=== PATIENT | male | born 1975 | race Caucasian/White ===

== ENCOUNTER 2024-09-10 06:38 | Day surgery (SDC) | payer OTHER, SELFPAY ==
[2024-09-10] VITALS (10 sets, daily range): BP systolic 114–212; BP diastolic 91–137; PULSE 88–118; RESP 12–22; TEMP 36.2–37.1; O2SAT 93–100
--- NOTE | ~2024-09-10 | US_ITS ---
EXAMINATION: US right upper quadrant DATE: 09/10/2024 08:22 INDICATION: Abdominal pain TECHNIQUE: Multiple grayscale and Doppler ultrasound images of the abdomen were obtained. COMPARISON: None FINDINGS: Visualized proximal inferior vena cava is normal. The region of the pancreas is obscured by shadowing bowel gas. Liver has normal contour, with a smooth surface. There is increased parenchymal echogenic ity and coarsened echotexture consistent with diffuse hepatic steatosis. No liver lesion identified. No intrahepatic biliary duct dilation suspected. Portal venous flow was seen in the hepatopetal, nor mal direction and has normal Doppler waveform. The gallbladder is normal in appearance. There is no cholelithiasis. The common bile duct measures 4 mm, which is normal. Sonographic Giordano sign was repo rted as negative by the special education case manager. Visualized portion of the right kidney demonstrates normal echog enicity and contour with no hydronephrosis. IMPRESSION: 1. Diffuse hepatic steatosis. Reviewed, dictated and finalized at location A. ERN TECHNICIAN
--- NOTE | ~2024-09-10 | CT_ITS ---
EXAMINATION: CT abdomen pelvis w con DATE: 09/10/2024 08:55 INDICATION: Epigastric pain and right upper quadrant abdominal pain. TECHNIQUE: Computed tomography (CT) of the abdomen and pelvis was performed with 100 mL Omnipaque-350 intravenous contrast. Automated exposure control and iterative reconstruction technique were employe d. The dose-length product was 1347.12 mGy-cm. COMPARISON: None FINDINGS: Lung bases are clear. Heart size is normal. No pericardial or pleural effusion. 304 mm gallstone in t he region of the cystic duct. The gallbladder is not abnormally dilated measuring 3.3 cm however ther e is mild edematous with gallbladder wall thickening versus and/or minimal amount of pericholecystic fluid consistent with acute cholecystitis. Liver, spleen, pancreas, bilateral adrenal glands and kidn eys are normal. There are few diverticula along the sigmoid colon without adjacent inflammatory laurent e to suggest diverticulitis. Small bowel and appendix are normal. Bladder is normal. Small bilateral fat-containing inguinal hernias. No free intraperitoneal gas or fluid. No pathologically enlarged abd ominal or pelvic lymphadenopathy. Moderate lumbar and lower thoracic spondylosis. IMPRESSION: 1. Acute cholecystitis with 3-4 mm cystic duct gallstone. Reviewed, dictated and finalized at location A. L RIGHTS INVESTIGATOR
--- NOTE | 2024-09-10 06:52 | ECG_ITS ---
Test Date: 2024-09-10 06:54:46 Measurements Intervals [place] Rate: 112 P: 54 [place]: 164 QRS: -32 QRSD: 95 T: 62 QT: 336 QTc: 460 Interpretive Statements SINUS TACHYCARDIA LEFT ATRIAL ENLARGEMENT [-0.15mV P WAVE IN V1/V2] INDETERMINATE AXIS PATTERN CONSISTENT WITH PULMONARY DISEASE No previous ECG available for comparison Electronically Signed On 09-10-2024 12:53:18 CENTRAL OFFICE WORKER by Gerard Mcneal M.D.
--- NOTE | 2024-09-10 07:00 | PC.NURSE ---
This patient presents to ED for epigastric pain. Patient is hypertensive at 212/137, per patient, my blood pressure goes up when I get my vitals taken. Patient is ambulatory and a/o x's 4.
[2024-09-10 07:12] LABS: Basophils Absolute Auto 0.1 K/mm3 (0.0-0.1); Basophils Percent Auto 0.3 % (0.2-1.2); Eosinophils Percent Auto 0.2 % (0-4.4); Hematocrit 53.2 % (42.0-52.0); Hemoglobin 18.2 g/dL (14.0-18.0); Immature Granulocyte Absolute 0.07 K/mm3 (0.00-0.031); Immature Granulocyte Percent A 0.5 % (0-0.5); Lymphocytes Absolute Auto 1.71 K/mm3 (0.9-3.2); Lymphocytes Percent Auto 11.7 % (18.3-44.2); Mean Corpuscular HGB Conc 34.2 g/dl (32-36); Mean Corpuscular Hemoglobin 30.2 pg (26-34); Mean Corpuscular Volume 88.2 fl (80-100); Mean Platelet Volume 10.3 fl (7.4-10.4); Monocytes Percent Auto 6.7 % (2.6-8.5); Neutrophils Absolute Auto 11.8 K/mm3 (1.3-6.7); Neutrophils Percent Auto 80.6 % (45.5-73.1); Platelet Count Result 280 k/mm3 (150-375); Red Blood Count 6.03 M/mm3 (4.6-6.20); Red Cell Distribution Width 13.3 % (11.5-14.5); White Blood Count 14.6 K/mm3 (4.5-10.0)
[2024-09-10 07:22] LABS: Alanine Aminotransferase 54 U/L (6-50); Albumin Level 4.9 g/dL (3.5-5.1); Alkaline Phosphatase 94 U/L (38-126); Anion Gap 9 mmol/L (4-12); Aspartate Amino Transferase 46 U/L (17-59); Bilirubin,Total 0.8 mg/dL (0.2-1.3); Blood Urea Nitrogen 17 mg/dL (9-20); Calcium 9.4 mg/dL (8.4-10.2); Carbon Dioxide 26 mmol/L (22-30); Chloride 103 mmol/L (98-107); Estimated CRCL calculation 108 ml/min; Estimated Glomerular Filt Rate > 60; Glucose 145 mg/dL (65-110); Lipase 86 U/L (23-300); Potassium 3.8 mmol/L (3.4-5.0); Sodium 138 mmol/L (137-145)
[2024-09-10] MEDS: MORPHINE SULFATE (*CRX) 4 MG/ML INJ IV PUSH (07:40)
[2024-09-10 08:38] LABS: Add Urine Microscopic? YES; Appearance Urine Clear (Clear); Bacteria Urine None Seen /hpf; Bilirubin Urine Negative (Negative); Blood Urine Negative (Negative); Color Urine Yellow (Yellow); Glucose Urine UA Negative (Negative); Ketones Urine Negative (Negative); Leukocyte Esterase Ur Negative LEU/UL (Negative); Nitrate Urine Negative (Negative); Non Pathogenic Casts 0-2; Protein Urine 2+ mg/dL (Negative); RBC Urine 0-2 /hpf (0-2); Squamous Epithelial Cell Urine None Seen /hpf (Few); Urobilinogen Urine 0.2 mg/dL (<2.0); WBC Urine 0-5 /hpf (0-3)
--- NOTE | 2024-09-10 08:43 | ED.GENADULT ---
HPI - General Adult General Chief complaint: Abdominal Pain Stated complaint: abdominal pain Time Seen by Provider: 09/10/24 07:02 History of Present Illness HPI narrative: Patient is a 49-year-old male who presents ER with epigastric and right upper quadrant abdominal pain. Intermittent over last couple of weeks. He has been feeling bloated. Pain is worse with eating and drinking. Worsened today while he is asleep and the pain persisted which was atypical for him. No fevers or chills. Regular vomiting. Related Data Allergies Allergy/AdvReac Type Severity Reaction Status Date / Time Sulfa (Sulfonamide Allergy Rash Verified 09/10/24 13:07 Antibiotics) Review of Systems Review of Systems: All systems reviewed & are unremarkable except as noted in HPI and below Constitutional: Constitutional: Reports no additional constitutional complaints ENT: Reports system reviewed and no additional complaints, except as documented Cardiovascular: Cardiovascular: Reports no additional cardiovascular complaints Respiratory: Respiratory: Reports no additional respiratory complaints PMFSH Past Medical History Medical History (Updated 09/10/24 @ 20:06 by Javier Yepez MD) HTN (hypertension) Obesity (BMI 30-39.9) Exam Narrative: GENERAL: Well-appearing, well-nourished, and in no acute distress. HEAD: Normocephalic, atraumatic. ENT: Mucous membranes moist. CHEST: Clear to auscultation. No respiratory distress. HEART: Regular rate and rhythm. Normal peripheral pulses. ABDOMEN: Soft, tender palpation right upper quadrant with guarding, nondistended, normal active bowel sounds. EXTREMITIES: Normal range of motion. No edema. SKIN: Warm, dry, no rash. NEURO: Alert and oriented x3. PSYCH: Normal mood and affect. Course Course Emergency Course: Discussed with General surgery. Patient will go to the OR for cholecystectomy. IV antibiotics ordered. Vital Signs Vital signs: Vital Signs Temperature 98.8 F 09/10/24 06:43 Pulse Rate 118 H 09/10/24 06:43 Respiratory Rate 16 09/10/24 06:43 Blood Pressure 212/137 H 09/10/24 06:43 Pulse Oximetry 100 09/10/24 06:43 Oxygen Delivery Room Air 09/10/24 06:43 Temperature 97.2 F L 09/10/24 14:15 Pulse Rate 111 H 09/10/24 15:36 Respiratory Rate 14 09/10/24 15:36 Blood Pressure 138/99 H 09/10/24 15:36 Pulse Oximetry 94 09/10/24 14:45 Oxygen Delivery Room Air 09/10/24 14:45 Oxygen Flow Rate 8 09/10/24 14:15 Medical Decision Making Vital Signs Vital Signs: Vital Signs Temperature 98.8 F 09/10/24 06:43 Pulse Rate 118 H 09/10/24 06:43 Respiratory Rate 16 09/10/24 06:43 Blood Pressure 212/137 H 09/10/24 06:43 Pulse Oximetry 100 09/10/24 06:43 Oxygen Delivery Room Air 09/10/24 06:43 Temperature 97.2 F L 09/10/24 14:15 Pulse Rate 111 H 09/10/24 15:36 Respiratory Rate 14 09/10/24 15:36 Blood Pressure 138/99 H 09/10/24 15:36 Pulse Oximetry 94 09/10/24 14:45 Oxygen Delivery Room Air 09/10/24 14:45 Oxygen Flow Rate 8 09/10/24 14:15 Lab Data 09/10/24 06:58 09/10/24 06:58 Labs: Lab Results 09/10/24 09/10/24 Range/Units 06:58 08:27 WBC 14.6 H (4.5-10.0) K/mm3 RBC 6.03 (4.6-6.20) M/mm3 Hgb 18.2 H (14.0-18.0) g/dL Hct 53.2 H (42.0-52.0) % MCV 88.2 (80-100) fl MCH 30.2 (26-34) pg MCHC 34.2 (32-36) g/dl RDW 13.3 (11.5-14.5) % Plt Count 280 (150-375) k/mm3 MPV 10.3 (7.4-10.4) fl Immature Gran % (Auto) 0.5 (0-0.5) % Neut % (Auto) 80.6 H (45.5-73.1) % Lymph % (Auto) 11.7 L (18.3-44.2) % [place] % (Auto) 6.7 (2.6-8.5) % Eos % (Auto) 0.2 (0-4.4) % Baso % (Auto) 0.3 (0.2-1.2) % Lymph # (Auto) 1.71 (0.9-3.2) K/mm3 [place] # (Auto) 1.0 H (0.1-0.6) K/mm3 Eos # (Auto) 0.0 (0-0.3) K/mm3 Baso # (Auto) 0.1 (0.0-0.1) K/mm3 Abs Immat Gran (auto) 0.07 H (0.00-0.031) K/mm3 Absolute Neuts (auto) 11.8 H (1.3-6.7) K/mm3 Absolute Nucleated RBC 0.000 (0.0-0.012) K/mm3 Nucleated RBC % 0.0 (0.0-0.2) % Sodium 138 (137-145) mmol/L Potassium 3.8 (3.4-5.0) mmol/L Chloride 103 (98-107) mmol/L Carbon Dioxide 26 (22-30) mmol/L Anion Gap 9 (4-12) mmol/L BUN 17 (9-20) mg/dL Creatinine 1.00 (0.7-1.3) mg/dL Estim Creat Clear Calc 108 ml/min Estimated GFR > 60 (59 - ) Glucose 145 H (65-110) mg/dL Calcium 9.4 (8.4-10.2) mg/dL Total Bilirubin 0.8 (0.2-1.3) mg/dL AST 46 (17-59) U/L ALT 54 H (6-50) U/L Alkaline Phosphatase 94 (38-126) U/L Total Protein 8.0 (6.3-8.2) g/dL Albumin 4.9 (3.5-5.1) g/dL Lipase 86 (23-300) U/L Urine Color Yellow (Yellow) Urine Appearance Clear (Clear) Urine pH 8.0 (5.0-9.0) Ur Specific [place] 1.020 (1.001-1.035) Urine Protein 2+ H (Negative) mg/dL Urine Glucose (UA) Negative (Negative) mg/dL Urine Ketones Negative (Negative) mg/dL Ur Blood (Man) Negative (Negative) Urine Nitrate Negative (Negative) Urine Bilirubin Negative (Negative) Urine Urobilinogen 0.2 (<2.0) mg/dL Leukocyte Esterase Rfl Negative (Negative) DIANE/UL Urine RBC 0-2 (0-2) /hpf Urine WBC 0-5 (0-3) /hpf Ur Squamous Epith Cells None seen (Few) /hpf Urine Bacteria None seen /hpf Urine Casts 0-2 Imaging Data Radiologist's impression: ITS Impressions Upper Quadrant Ultrasound 09/10/24 08:23 IMPRESSION: 1. Diffuse hepatic steatosis. Abdomen/Pelvis CT 09/10/24 08:59 IMPRESSION: 1. Acute cholecystitis with 3-4 mm cystic duct gallstone. Discharge Plan Discharge Clinical Impression: Acute calculous cholecystitis Patient Disposition: Still a Patient Condition: Stable
[2024-09-10] MEDS: metroNIDAZOLE 500 MG/ISO 100ML 500 MG/100 ML BAG 100 MG IVPB (11:17)
[2024-09-10] MEDS: SODIUM CHLORIDE 0.9% IV 1,000 ML 125 ML IV CONT (11:18)
--- NOTE | 2024-09-10 11:32 | PM.IMHP ---
H&P: HPI History of Present Illness Date/Time: 09/10/24 11:32 Chief Complaint: Right upper quadrant abdominal pain Narrative: The patient is a 49-year-old male presenting to the emergency department complaining epigastric, right upper quadrant abdominal pain. The patient reports associated bloating, poor appetite, nausea. The patient reports the symptoms have been progressively worsening over the last few months. Workup in the emergency department, including imaging, is significant for acute cholecystitis, cholelithiasis. Review of Systems Review of Systems: All systems reviewed & are unremarkable except as noted in HPI and below Meds Home Medications and Allergies Allergies Allergy/AdvReac Type Severity Reaction Status Date / Time Sulfa (Sulfonamide Allergy Rash Verified 09/10/24 06:56 Antibiotics) Vital Signs Vital Signs - 24 hr 09/10/24 06:43 09/10/24 09:53 09/10/24 11:22 Temperature 37.1 C Pulse Rate 118 H 88 92 Respiratory Rate 16 12 16 Blood Pressure 212/137 H 166/115 H 154/106 H Pulse Oximetry 100 98 96 Oxygen Delivery Room Air Exam Const: General: cooperative, no acute distress, uncomfortable and obese HENMT: Head: normal to inspection, normocephalic and atraumatic Eyes: General: appearance normal, both eyes and all related structures Neck: Neck: normal visual inspection and no lymphadenopathy Resp: Auscultation: clear to auscultation bilaterally Cardio: Rate: regular rate Rhythm: regular rhythm GI: Inspection: normal to inspection and distended GI Palp: Yes abdominal tenderness, Yes Soft to palpation, Yes Tenderness to palpation present (GI), No Guarding due to palpation present (GI) and No Rigid due to palpation Skin: General skin exam: normal color and no rashes or lesions noted Neuro: General: patient oriented x3 and CN's II-XI intact bilaterally Extrem: General: normal to inspection and full ROM H&P: Results Labs Labs: Short CBC 09/10/24 Range/Units 06:58 WBC 14.6 H (4.5-10.0) K/mm3 Hgb 18.2 H (14.0-18.0) g/dL Hct 53.2 H (42.0-52.0) % Plt Count 280 (150-375) k/mm3 BMP 09/10/24 06:58 Sodium 138 Potassium 3.8 Chloride 103 Carbon Dioxide 26 BUN 17 Creatinine 1.00 Glucose 145 H Calcium 9.4 Liver Function 09/10/24 Range/Units 06:58 Total Bilirubin 0.8 (0.2-1.3) mg/dL AST 46 (17-59) U/L ALT 54 H (6-50) U/L Alkaline Phosphatase 94 (38-126) U/L Albumin 4.9 (3.5-5.1) g/dL Urine 09/10/24 Range/Units 08:27 Urine Color Yellow (Yellow) Urine Appearance Clear (Clear) Urine pH 8.0 (5.0-9.0) Ur Specific [place] 1.020 (1.001-1.035) Urine Protein 2+ H (Negative) mg/dL Urine Glucose (UA) Negative (Negative) mg/dL Imaging CT scan - abdomen: My impression: Acute cholecystitis, cholelithiasis Assessment and Plan Assessment and plan (1) Acute calculous cholecystitis: Code(s): K80.00 - Calculus of gallbladder with acute cholecystitis without obstruction Status: Acute Assessment and Plan: long discussion patient and decision to proceed with urgent cholecystectomy, NPO, IV antibiotics
--- NOTE | 2024-09-10 11:35 | WPDHPUPDATE1 ---
History and Physical Update Update Date/Time: 09/10/24 11:35 History and Physical has been reviewed, including an updated exam of the patient. There are NO changes in the patient's condition. Risks, benefits, and alternatives have been discussed and questions answered. Patient agrees to proceed with procedure.
--- NOTE | 2024-09-10 13:10 | WPDANESEPP ---
Anes - Eval Pre Procedure Procedure: Operation Date: 09/10/24 14:30 Proposed Procedures p Laparoscopic Cholecystectomy - Dayan Carranza MD Date/Time: 09/10/24 13:10 Pre Op Diagnosis: Cholecystitis Patient Data Age: 49 Gender: M Height: 1.83 m Weight: 119.8 kg Last Vital Signs Temp 36.8 C 09/10/24 13:00 Pulse 117 H 09/10/24 13:00 Resp 20 09/10/24 13:00 BP 159/108 H 09/10/24 13:00 Pulse Ox 97 09/10/24 13:00 O2 Del Method Room Air 09/10/24 13:00 Allergies Allergy/AdvReac Type Severity Reaction Status Date / Time Sulfa (Sulfonamide Allergy Rash Verified 09/10/24 13:07 Antibiotics) Laboratory Tests 09/10/24 09/10/24 06:58 08:27 WBC 14.6 H K/mm3 (4.5-10.0) RBC 6.03 M/mm3 (4.6-6.20) Hgb 18.2 H g/dL (14.0-18.0) Hct 53.2 H % (42.0-52.0) MCV 88.2 fl (80-100) MCH 30.2 pg (26-34) MCHC 34.2 g/dl (32-36) RDW 13.3 % (11.5-14.5) Plt Count 280 k/mm3 (150-375) MPV 10.3 fl (7.4-10.4) Immature Gran % (Auto) 0.5 % (0-0.5) Neut % (Auto) 80.6 H % (45.5-73.1) Lymph % (Auto) 11.7 L % (18.3-44.2) [place] % (Auto) 6.7 % (2.6-8.5) Eos % (Auto) 0.2 % (0-4.4) Baso % (Auto) 0.3 % (0.2-1.2) Lymph # (Auto) 1.71 K/mm3 (0.9-3.2) [place] # (Auto) 1.0 H K/mm3 (0.1-0.6) Eos # (Auto) 0.0 K/mm3 (0-0.3) Baso # (Auto) 0.1 K/mm3 (0.0-0.1) Abs Immat Gran (auto) 0.07 H K/mm3 (0.00-0.031) Absolute Neuts (auto) 11.8 H K/mm3 (1.3-6.7) Absolute Nucleated RBC 0.000 K/mm3 (0.0-0.012) Nucleated RBC % 0.0 % (0.0-0.2) Sodium 138 mmol/L (137-145) Potassium 3.8 mmol/L (3.4-5.0) Chloride 103 mmol/L (98-107) Carbon Dioxide 26 mmol/L (22-30) Anion Gap 9 mmol/L (4-12) BUN 17 mg/dL (9-20) Creatinine 1.00 mg/dL (0.7-1.3) Estim Creat Clear Calc 108 ml/min Estimated GFR > 60 (59 - ) Glucose 145 H mg/dL (65-110) Calcium 9.4 mg/dL (8.4-10.2) Total Bilirubin 0.8 mg/dL (0.2-1.3) AST 46 U/L (17-59) ALT 54 H U/L (6-50) Alkaline Phosphatase 94 U/L (38-126) Total Protein 8.0 g/dL (6.3-8.2) Albumin 4.9 g/dL (3.5-5.1) Lipase 86 U/L (23-300) Urine Color Yellow (Yellow) Urine Appearance Clear (Clear) Urine pH 8.0 (5.0-9.0) Ur Specific [place] 1.020 (1.001-1.035) Urine Protein 2+ H mg/dL (Negative) Urine Glucose (UA) Negative mg/dL (Negative) Urine Ketones Negative mg/dL (Negative) Ur Blood (Man) Negative (Negative) Urine Nitrate Negative (Negative) Urine Bilirubin Negative (Negative) Urine Urobilinogen 0.2 mg/dL (<2.0) Leukocyte Esterase Rfl Negative DIANE/UL (Negative) Urine RBC 0-2 /hpf (0-2) Urine WBC 0-5 /hpf (0-3) Ur Squamous Epith Cells None seen /hpf (Few) Urine Bacteria None seen /hpf Urine Casts 0-2 Patient hx anesthesia problems: none Family hx anesthesia problems: none Results Review: All pre-operative results and documents have been reviewed as part of the pre-operative evaluation. [facility] Past Medical History Medical History (Updated 09/10/24 @ 13:11 by Emma López CRNA) HTN (hypertension) Obesity (BMI 30-39.9) Exam Day of Procedure 09/10/24 13:10
--- NOTE | 2024-09-10 13:12 | P.PNAN_ITS ---
Anes - Eval Final PreProcedure Day of Procedure 09/10/24 13:12 Patient weight: obese Heart: regular rate and rhythm Lungs: clear to auscultation Airway: Mallampati scale class II Neurological: alert and oriented Last oral intake: >/= 8 hours ASA classification: III Emergent: no Anesthetic plan: proceed Anesthesia type and monitoring: general ETT and standard monitoring Results Review: All pre-operative results and documents have been reviewed as part of the pre- operative evaluation. Informed Consent: The patient's anesthetic plan and its attendant risks and benefits were discussed with the patient/family/POA. Questions were solicited and answers provided to the satisfaction of the patient/family/POA.
[2024-09-10] MEDS: BUPIVACAINE/EPINEPHRINE 0.5% 50 ML VIAL 30 ML INFILTRATE (13:43)
--- NOTE | 2024-09-10 14:27 | W.PM.PROC2 ---
Procedure Note - Detailed Date of Procedure 09/10/24 Pre-op Diagnosis acute cholecystitis, cholelithiasis Post-op Diagnosis Same Procedure Performed Laparoscopic cholecystectomy Surgeon Dayan Carranza MD Anesthesia General Indications 49 y/o M presenting to ED c acute cholecystitis, cholelithiasis. Findings acute cholecystitis, cholelithiasis Description of Procedure The patient was taken to the operating room placed in the supine position. After adequate induction of general anesthesia, the patient was prepped and draped in normal sterile fashion. A time-out was then performed to verify the patient's identity as well as the procedure being performed. I then made a 5 mm incision in the infraumbilical region. Through this, a Veress needle was placed into the peritoneal cavity and CO2 gas was then insufflated. After adequate pneumoperitoneum was achieved, the Veress needle was removed and a 5 mm optiview trocar was placed through this incision under direct visualization. I then placed the laparoscope through this trocar site and under direct visualization placed a further 12 mm subxiphoid port as well as 2 additional 5 mm ports in the right upper abdomen. The gallbladder was then identified and was noted to be inflamed, distended, and full of gallstones. I was able to place a grasper at the dome of the gallbladder and this was retracted anterior and cephalad up over the liver. A 2nd retractor was then placed at the infundibulum and retracted laterally, this allowed visualization of the triangle of [place]. I then was able to visualize the cystic duct in its entirety from its proximal insertion into the gallbladder, to its distal junction with the common hepatic/common bile duct junction. At this point, I carefully skeletonized the proximal cystic duct with the [place] dissector. I then clipped and transected the proximal cystic duct. Next I visualized the cystic artery. Again the artery was skeletonized, clipped, and transected. I then used the Bovie cautery to take down the peritoneal attachments of the gallbladder off the liver bed. This was somewhat difficult given the amount of inflammation in the posterior space. Once the gallbladder specimen was completely detached, an endo-pouch was placed through the 12 mm port site. I then placed the gallbladder specimen into the Endo pouch and removed the endo-pouch from the 12 mm port site. The specimen will now be sent to pathology for further review. I then copiously irrigated the right upper quadrant. Hemostasis was noted in the liver bed, the clips were noted to be in good position on both the cystic duct stump and the cystic artery stump. No other pathology was noted in the right upper quadrant. I then moved the laparoscope to the subxiphoid port. No iatrogenic injury or other pathology was noted in the lower abdomen. I then closed the 12 mm trocar site under direct visualization using the Bunny cone and 0 Vicryl suture. At this point, the abdomen was desufflated and all ports removed. All port sites were then closed with 4.O Monocryl subcuticular sutures. Dermabond was placed on each incision. The patient tolerated the procedure well, was extubated in the operating room postoperative and will be transferred to the recovery room in stable condition Estimated Blood Loss 5 Drains No Packing No Pathology Yes Complications No immediate complications Condition Stable Disposition PACU [facility] Billing Surgery - Charge Forward: Surgery Billing
== END 2024-09-10 15:38 | disposition home or self-care (01) ==
LOC: ANHED 10:06 → ANH3MEDSUR 11:30 → ANHSURGERY 09-13 07:38 → ANH3MEDSUR 09-13 07:39
PROVIDERS: Emergency Medicine; Emergency Provider Emergency Medicine; Visit Provider Surgery
PROC: 0FT44ZZ Resection of Gallbladder, Percutaneous Endoscopic Approach (ICD-10-PCS; CPT 47562; principal; 2024-09-10 14:30)
DX: K80.10 Calculus of gallbladder with chronic cholecystitis without obstruction (principal); I10 Essential (primary) hypertension; E66.9 Obesity, unspecified; Z68.35 Body mass index [BMI] 35.0-35.9, adult
CPT/HCPCS: 47562; 36415; 74177; 76705; 80053; 81001; 83690; 85025; 88304; 93005; 96374; 96375; 99285; G0378; J0330; J0696; J1100; J1171; J1836; J2003; J2250; J2270; J2405; J2704; J3010; J7030; Q9967